=== PATIENT | male | born 1945 | race Caucasian/White ===

== ENCOUNTER → 2017-11-05 | Outpatient (CLI) | payer MEDICARE, BC | END | disposition home or self-care (01) | LOC: RAD 17:07 | PROVIDERS: ATTEND Neurological Surgery | DX: M48.061 Spinal stenosis, lumbar region without neurogenic claudication (principal); M51.26 Other intervertebral disc displacement, lumbar region | CPT/HCPCS: 72148 ==

== ENCOUNTER 2017-11-24 09:23 | Inpatient (IN) | payer OTHER ==
[~2017-11-24] VITALS: Ht 180.3 cm; Wt 98.8 kg
[~2017-11-24 09:23] MED LIST: BACITRACIN 50,000 UNIT ONE; BUPIVACAINE/PF 0.5% ONE; EPINEPHRINE 1 MG/ML, 1ML ONE; NEOSPORIN OINT, 15GM ONE; THROMBIN 20,000 UNIT VIAL TP ONE
[2017-11-24 10:07] VITALS: BP 146/89
[2017-11-24 10:32] LABS: PROTHROMBIN TIME 10.4 Seconds (9.6-11.5)
[2017-11-24] MEDS ORDERED: LEVO125T5 PO (10:36)
[2017-11-24] MEDS ORDERED: MELO7.5T31 PO (10:36)
[2017-11-24] MEDS ORDERED: GABA800T2 PO (10:36)
[2017-11-24] MEDS ORDERED: ATOR20TA9 PO (10:36)
[2017-11-24] MEDS ORDERED: METF500T4 PO (10:36)
[2017-11-24] MEDS ORDERED: LISI-170 PO (10:36)
[2017-11-24] MEDS ORDERED: OMEP-110 PO (10:36)
[2017-11-24] MEDS ORDERED: OxyconTIN ER 10 MG TAB.ER PO ONE (11:30)
[2017-11-24] MEDS ORDERED: ACETAMINOPHEN 500 MG TABLET PO ONE (11:30)
[2017-11-24] MEDS ORDERED: GABAPENTIN 300 MG CAPSULE PO ONE (11:30)
[2017-11-24] MEDS ORDERED: CLINDAMYCIN PMX 900MG/50ML 50 ML IV ONE (11:30)
[2017-11-24] MEDS ORDERED: ONDANSETRON ODT 8 MG PO ONE (11:30)
[2017-11-24] MEDS ORDERED: DIAZEPAM 5 MG TABLET PO ONE (11:30)
[2017-11-24] MEDS ORDERED: LACTATED RINGERS 1,000 ML IV SCH (11:41)
[2017-11-24] MEDS ORDERED: LIDOCAINE-MPF 1%, 2ML INFIL ONE (12:00)
[2017-11-24] MEDS ORDERED: MIDAZOLAM 1 MG/ML, 2ML ONE (12:13)
[2017-11-24] MEDS ORDERED: FENTANYL PF 250 MCG/5ML ONE (12:13)
[2017-11-24] MEDS ORDERED: PROPOFOL 10 MG/ML, 20ML ONE (12:16)
[2017-11-24] MEDS ORDERED: ONDANSETRON 2MG/ML, 2ML ONE (12:16)
[2017-11-24] MEDS ORDERED: LIDOCAINE GEL 2%, 5ML ONE (12:16)
[2017-11-24] MEDS ORDERED: DEXAMETHASONE 4 MG/ML, 1ML ONE (12:16)
[2017-11-24] MEDS ORDERED: CEFAZOLIN 1,000 MG ONE (12:16)
[2017-11-24] MEDS ORDERED: hydrALAzine 20 MG/ML, 1ML IV PRN (12:30)
[2017-11-24] MEDS ORDERED: MIDAZOLAM 1 MG/ML, 2ML IV PRN (12:30)
[2017-11-24] MEDS ORDERED: LABETALOL 5MG/ML, 20ML IV PRN (12:30)
[2017-11-24] MEDS ORDERED: SCOPOLAMINE PATCH, 1.5MG PATCH.TD72 TD PRN (12:30)
[2017-11-24] MEDS ORDERED: OXYcodone 5 MG/5 ML ORAL.SOL UDC PO PRN (12:30)
[2017-11-24] MEDS ORDERED: DIAZEPAM 5 MG/ML, 2ML IVPush PRN (12:30)
[2017-11-24] MEDS ORDERED: ALBUTEROL/IPRATROPIUM 2.5MG/0.5MG, 3 ML NPPB PRN (12:30)
[2017-11-24] MEDS ORDERED: FENTANYL PF 100 MCG/2ML IV PRN (12:30)
[2017-11-24] MEDS ORDERED: PROMETHAZINE 25 MG/ML, 1ML IV PRN (12:30)
[2017-11-24] MEDS ORDERED: MEPERIDINE/PF 25MG/0.5ML IVPush PRN (12:30)
[2017-11-24] MEDS ORDERED: LORazepam 2 MG/ML, 1ML IVPush PRN (12:30)
[2017-11-24] MEDS ORDERED: EPHEDRINE 50 MG/ML, 1ML IM PRN (12:30)
[2017-11-24] MEDS ORDERED: MORPHINE SULFATE 4 MG/ML, 1ML IVPush PRN (12:30)
[2017-11-24] MEDS ORDERED: CLINDAMYCIN 150 MG/ML, 6ML ONE (12:49)
[2017-11-24] MEDS ORDERED: SUCCINYLCHOLINE 20 MG/ML, 10ML ONE ×2 (12:50)
[2017-11-24] MEDS ORDERED: PHENYLEPHRINE 10 MG/ML ONE (12:50)
[2017-11-24] MEDS ORDERED: PROPOFOL 50 ML ONE ×2 (13:54)
[2017-11-24 17:05] VITALS: BP 145/93
[2017-11-24 17:20] VITALS: BP 139/51
[2017-11-24] MEDS ORDERED: LORazepam 1MG TABLET PO PRN (18:00)
[2017-11-24] MEDS ORDERED: HYDROmorphone 1 MG/ML, 1ML IVPush PRN (18:00)
[2017-11-24] MEDS ORDERED: METHOCARBAMOL 1,000 MG in DEXTROSE 5% 100 ML IV ONE (18:00)
[2017-11-24] MEDS ORDERED: BISACODYL 10 MG SUPP PR PRN (18:00)
[2017-11-24] MEDS ORDERED: ONDANSETRON 2MG/ML, 2ML IV PRN (18:00)
[2017-11-24] MEDS ORDERED: CLINDAMYCIN PMX 300MG/50ML 50 ML IV SCH (18:00)
[2017-11-24] MEDS ORDERED: HYDROmorphone 2 MG/ML, 1ML IM PRN (18:00)
[2017-11-24] MEDS: NS + 20MEQ KCL 1,000 ML IV SCH (18:19)
[2017-11-24] MEDS: HYDROmorphone 2MG TABLET PO PRN ×2 (18:48→23:39)
[2017-11-24] MEDS: CLINDAMYCIN PMX 300MG/50ML 50 ML IV SCH (18:57)
[2017-11-24 19:59] VITALS: BP 149/86
[2017-11-24] MEDS: ATORVASTATIN 20 MG TABLET PO SCH (20:52)
[2017-11-24] MEDS: GABAPENTIN 300 MG CAPSULE PO SCH (20:53)
[2017-11-25 00:09] VITALS: BP 130/81
[2017-11-25] MEDS: CLINDAMYCIN PMX 300MG/50ML 50 ML IV SCH (01:50)
[2017-11-25] MEDS: METHOCARBAMOL 750 MG in DEXTROSE 5% 100 ML IV SCH ×3 (02:43→18:38)
[2017-11-25] MEDS: NS + 20MEQ KCL 1,000 ML IV SCH ×3 (04:00→23:57)
[2017-11-25 04:11] VITALS: BP 132/78
[2017-11-25 05:10] LABS: BASOPHILS # (AUTO) 0.05 x10^3/uL (0-0.1); BASOPHILS % (AUTO) 1 % (0-1); EOSINOPHILS % (AUTO) 0 % (1-7); LYMPHOCYTES # (AUTO) 0.76 x10^3/uL (1-3.4); LYMPHOCYTES % (AUTO) 7 % (22-44); MD NO; MEAN CORPUSCULAR HEMOGLOBIN 30.5 pg (27.5-34.5); MEAN CORPUSCULAR HGB CONC 34.4 g/dL (33.2-36.2); MEAN CORPUSCULAR VOLUME 88.8 fL (81-97); MEAN PLATELET VOLUME 7.3 fL (7.4-10.4); MONOCYTES # (AUTO) 0.43 x10^3/uL (0.2-0.8); MONOCYTES % (AUTO) 4 % (2-9); NEUTROPHILS # (AUTO) 9.81 x10^3/uL (1.8-6.8); NEUTROPHILS % (AUTO) 89 % (42-75); PLATELET COUNT 266 x10^3/uL (130-400); RED CELL DISTRIBUTION WIDTH 13.3 % (9.4-14.8)
[2017-11-25] MEDS: ENOXAPARIN 40 MG/0.4 ML SQ SCH (05:29)
[2017-11-25] MEDS: LEVOTHYROXINE 125 MCG TABLET PO SCH (05:30)
[2017-11-25] MEDS: HYDROmorphone 2MG TABLET PO PRN (05:30)
[2017-11-25 07:35] VITALS: BP 117/74
[2017-11-25] MEDS: metFORMIN XR 500 MG TAB.ER.24H PO SCH (07:51)
[2017-11-25] MEDS: OMEPRAZOLE 20 MG CAPSULE.DR PO SCH (07:51)
[2017-11-25] MEDS: MELOXICAM 15 MG TABLET PO SCH (08:40)
[2017-11-25] MEDS: SENNA/DOCUSATE TABLET PO SCH (08:40)
[2017-11-25] MEDS: LISINOPRIL 20 MG TABLET PO SCH (08:40)
[2017-11-25] MEDS: MAGNESIUM HYDROXIDE 8%, 30ML UDC PO PRN (08:41)
[2017-11-25] MEDS: GABAPENTIN 300 MG CAPSULE PO SCH ×2 (08:41→20:58)
[2017-11-25 13:52] VITALS: BP 122/72
[2017-11-25 20:27] VITALS: BP 102/61
[2017-11-25] MEDS: ATORVASTATIN 20 MG TABLET PO SCH (20:58)
[2017-11-26] MEDS: METHOCARBAMOL 750 MG in DEXTROSE 5% 100 ML IV SCH ×2 (02:21→10:00)
[2017-11-26 02:30] VITALS: BP 127/76
[2017-11-26 04:42] LABS: BASOPHILS # (AUTO) 0.02 x10^3/uL (0-0.1); BASOPHILS % (AUTO) 0 % (0-1); EOSINOPHILS # (AUTO) 0.04 x10^3/uL (0-0.4); EOSINOPHILS % (AUTO) 1 % (1-7); LYMPHOCYTES # (AUTO) 1.52 x10^3/uL (1-3.4); LYMPHOCYTES % (AUTO) 18 % (22-44); MD NO; MEAN CORPUSCULAR HGB CONC 33.7 g/dL (33.2-36.2); MEAN CORPUSCULAR VOLUME 89.2 fL (81-97); MEAN PLATELET VOLUME 7.5 fL (7.4-10.4); MONOCYTES # (AUTO) 0.76 x10^3/uL (0.2-0.8); MONOCYTES % (AUTO) 9 % (2-9); NEUTROPHILS # (AUTO) 6.29 x10^3/uL (1.8-6.8); NEUTROPHILS % (AUTO) 73 % (42-75); PLATELET COUNT 234 x10^3/uL (130-400); RED BLOOD COUNT 4.43 x10^6/uL (4.38-5.82); RED CELL DISTRIBUTION WIDTH 13.6 % (9.4-14.8)
[2017-11-26 04:47] LABS: CREATININE 1.17 mg/dL (0.7-1.3)
[2017-11-26] MEDS: MAGNESIUM HYDROXIDE 8%, 30ML UDC PO PRN (06:17)
[2017-11-26] MEDS: LEVOTHYROXINE 125 MCG TABLET PO SCH (06:17)
[2017-11-26] MEDS: ENOXAPARIN 40 MG/0.4 ML SQ SCH (06:18)
[2017-11-26 07:23] VITALS: BP 132/76
[2017-11-26] MEDS: GABAPENTIN 300 MG CAPSULE PO SCH (08:04)
[2017-11-26] MEDS: OMEPRAZOLE 20 MG CAPSULE.DR PO SCH (08:04)
[2017-11-26] MEDS: metFORMIN XR 500 MG TAB.ER.24H PO SCH (08:04)
[2017-11-26] MEDS: SENNA/DOCUSATE TABLET PO SCH (08:04)
[2017-11-26] MEDS: MELOXICAM 15 MG TABLET PO SCH (08:04)
[2017-11-26] MEDS: LISINOPRIL 20 MG TABLET PO SCH (08:05)
[2017-11-26] MEDS: NS + 20MEQ KCL 1,000 ML IV SCH (10:00)
[2017-11-26] MEDS: HYDROmorphone 2MG TABLET PO PRN (10:22)
[2017-11-27] MEDS ORDERED: METHOCARBAMOL 750 MG TABLET PO SCH (06:00)
== END 2017-11-26 11:40 | disposition home or self-care (01) | DRG 454 ==
LOC: ORIP 09:23 → 4NOR 17:05 → DCLOUNGE 11-26 11:27
PROVIDERS: ADMIT Neurological Surgery; ATTEND Neurological Surgery
PROC: 0SG00AJ Fusion of Lumbar Vertebral Joint with Interbody Fusion Device, Posterior Approach, Anterior Column, Open Approach (ICD-10-PCS; 2017-11-24)
PROC: 4A1134G Monitoring of Peripheral Nervous Electrical Activity, Intraoperative, Percutaneous Approach (ICD-10-PCS; 2017-11-24)
PROC: 0SG0071 Fusion of Lumbar Vertebral Joint with Autologous Tissue Substitute, Posterior Approach, Posterior Column, Open Approach (ICD-10-PCS; principal; 2017-11-24 11:30)
DX: M48.062 Spinal stenosis, lumbar region with neurogenic claudication (principal); G95.20 Unspecified cord compression; E11.9 Type 2 diabetes mellitus without complications; E78.00 Pure hypercholesterolemia, unspecified; M43.16 Spondylolisthesis, lumbar region; Z85.9 Personal history of malignant neoplasm, unspecified; Z82.3 Family history of stroke; Z82.49 Family history of ischemic heart disease and other diseases of the circulatory system; Z88.0 Allergy status to penicillin
CPT/HCPCS: 36415; 72100; 82565; 82962; 85025; 85610; 85730; C1713; J0171; J0690; J1100; J1170; J1650; J2250; J2405; J2704; J3010; J3480; J3490; Q0162; C1762; J0330; J2370; J2800; J7120